=== PATIENT | female | born 1940 | race Caucasian/White ===

== ENCOUNTER 2020-10-17 15:38 | Emergency (ER) | payer MEDICARE, OTHER, SELFPAY ==
[2020-10-17 15:41] VITALS: BP 186/81; PULSE 68; RESP 18; TEMP 36.7; O2SAT 96; BMI 24.7
--- NOTE | 2020-10-17 19:02 | XRR_ITS ---
PROCEDURE INFORMATION: Exam: XR Bilateral Hips Exam date and time: 10/17/2020 7:02 PM Age: 80 years old Clinical indication: Hip pain; Bilateral; Additional info: Bilateral hip pain TECHNIQUE: Imaging protocol: XR bilateral hips. Views: 2 views of hips with pelvis when performed. COMPARISON: No relevant prior studies available. FINDINGS: Bones/joints: There is under coverage of the femoral head a due to shallow acetabula bilaterally. Joint spaces are preserved. No osteophytes. Bony pelvis is intact. Sacrum and SI joints are unremarkable. There is moderate lower lumbar degenerative disease. Soft tissues: Unremarkable. XR/XR hip BI 2V wo/w pel [id number] IMPRESSION: 1. No fracture. 2. 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
--- NOTE | 2020-10-17 20:37 | ED_ITS ---
HPI - Extremity Problem General: Chief complaint: Extremity Problem,Nontraumatic Stated complaint: BILATERAL HIP PAIN, L KNEE PAIN Time Seen by Provider: 10/17/20 20:35 Source: patient and family Mode of arrival: ambulatory Limitations: altered mental status (Alzheimers patient.) History of Present Illness: HPI Narrative: History of osteoarthritis, Alzheimer's. Patient recently relocated to live with daughter. Has chronic osteoarthritic pain currently taking Mobic and tramadol for pain. Describes spastic pain to the lower back and hips patient's daughter states with movement pain is worse. Lives at home with daughter ambulates with walker. Complaint: extremity pain Onset (ago): year(s) Pain Consistency: intermittent Location: left Severity scale (1-10): 4 Quality: dull Radiation: distal (to knee) Relieving factors: rest Exacerbating factors: weight bearing and walking Associated symptoms: Reports arthralgias Review of Systems General: Reports: 10 or more systems reviewed and unremarkable except in HPI and below Musc: Reports: back pain, extremity pain and joint pain Physical Exam Const: COMMON NORMALS: no acute distress and average body habitus HENMT: COMMON NORMALS: normocephalic and atraumatic HEAD & SCALP: normocephalic and atraumatic FACE & SINUS: normal facial exam Eye: COMMON NORMALS: Equal, round and reactive pupils present and EOMs intact bilaterally PUPIL: Yes Equal, round and reactive pupils present Neck/C-Spine: COMMON NORMALS: full ROM, no lymphadenopathy, supple and no JVD Lymph: LYMPHATIC: no lymphadenopathy noted Resp: COMMON NORMALS: normal respiratory effort, No retractions, No use of accessory muscles, clear to auscultation bilaterally and percussion normal AUSCULTATION: clear to auscultation bilaterally PERCUSSION: percussion normal Cardio: COMMON NORMALS: no JVD, regular rate, regular rhythm, S1 normal heart sound present and S2 normal heart sound present RATE: regular rate RHYTHM: regular rhythm HEART SOUNDS: S1 normal heart sound present and S2 normal heart sound present GI: COMMON NORMALS: Normal to inspection, nondistended, normoactive bowel sounds present Extremity: LEFT LOWER EXTREMITY: Yes hip joint (Unremarkable tenderness to palpation) Skin: COMMON NORMALS: no rashes or lesions noted GENERAL SKIN EXAM: no rashes or lesions noted Course ED course: Patient new to the area needs social services manager to assist in establishing patient with primary care provider. Family prefers Dr. Carlson. History of osteoarthritis pain worse recently following long trip and moving in with daughter. Patient has been very active painful movement with use of walker. Patient needs to establish with neurology for management of Alzheimer's.Discussed need for PCP for managment of patient in great detail with family. Agrees to work with social services manager to get established. Vital Signs: Vital signs: Vital Signs Temperature 98.1 F 10/17/20 15:41 Pulse Rate 60 10/17/20 21:38 Respiratory Rate 17 10/17/20 21:38 Blood Pressure 150/60 10/17/20 21:38 Pulse Oximetry 94 10/17/20 21:38 MDM - Extremity (Nontraumatic) Imaging Data^: Xray Ortho: Attestation: I personally reviewed and interpreted this imaging study as follows: Radiologist's impression: Ordering Provider/Ordering MD: Nelson Bowling DO Date of Service: 10/17/20 Procedure(s): XR hip BI 2V wo/w pel [id number] Accession Number(s): [id number] Report Number: [id number] PROCEDURE INFORMATION: Exam: XR Bilateral Hips Exam date and time: 10/17/2020 7:02 PM Age: 80 years old Clinical indication: Hip pain; Bilateral; Additional info: Bilateral hip pain TECHNIQUE: Imaging protocol: XR bilateral hips. Views: 2 views of hips with pelvis when performed. COMPARISON: No relevant prior studies available. FINDINGS: Bones/joints: There is under coverage of the femoral head a due to shallow acetabula bilaterally. Joint spaces are preserved. No osteophytes. Bony pelvis is intact. Sacrum and SI joints are unremarkable. There is moderate lower lumbar degenerative disease. Soft tissues: Unremarkable. XR/XR hip BI 2V wo/w pel [id number] IMPRESSION: 1. No fracture. 2. 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 Condition: Stable Prescriptions: New Voltaren 1 % gel 2 g topical QID Qty: 100 RF: 0 tizanidine 2 mg tablet 2 mg PO BID PRN (Reason: muscle spasticity) Qty: 14 RF: 0 No Action metformin 500 mg Tablet 500 mg PO DAILY RF: 0 Zyrtec 10 mg Tablet 10 mg PO DAILY RF: 0 metoprolol succinate 50 mg Tablet Extended Release 24 Hr 50 mg PO DAILY RF: 0 meloxicam 15 mg Tablet 15 mg PO DAILY RF: 0 Synthroid 50 mcg Tablet 50 mcg PO DAILY RF: 0 aspirin 81 mg Tablet 81 mg PO DAILY RF: 0 hydrochlorothiazide 25 mg Tablet 25 mg PO DAILY RF: 0 lovastatin 20 mg Tablet 20 mg PO QPM RF: 0 lisinopril 2.5 mg Tablet 2.5 mg PO DAILY RF: 0 docusate sodium 100 mg Tablet 100 mg PO DAILY RF: 0 Vitamin D3 50 mcg (2,000 unit) Tablet 50 mcg PO DAILY RF: 0 tramadol 50 mg Tablet 50 mg PO DAILY PRN (Reason: Pain) RF: 0 Discharge Orders: Discharge ED (Routine); Ordered 10/17/20 Ordered By: Roxann Castañeda Referrals: Jacki Carlson MD [Referring] - 4-7 days (Establish PCP) Discharge Diet: Usual diet Discharge Activity: Limit activity as instructed Patient Instructions: Osteoarthritis, Degenerative Disc Disease (ED), Opioid Safety Activity Restrictions/Additional Instructions: Use muscle relaxer sparingly for severe pain. Coding Level of Care Code ED Converting Technician for Yaneth Fwkaren Exam Comprehensive
[2020-10-17 20:56] VITALS: BP 204/72; PULSE 67; RESP 17; O2SAT 99
[2020-10-17 21:38] VITALS: BP 150/60; PULSE 60; RESP 17; O2SAT 94
== END 2020-10-17 22:01 | disposition home or self-care (01) ==
PROVIDERS: Emergency Provider Nurse Practitioner Family
DX: M16.2 Bilateral osteoarthritis resulting from hip dysplasia (principal); Z79.84 Long term (current) use of oral hypoglycemic drugs; Z79.82 Long term (current) use of aspirin
CPT/HCPCS: 73521; 99282

== ENCOUNTER 2020-11-27 11:12 | Outpatient (CLI) | payer MEDICARE, OTHER, SELFPAY ==
--- NOTE | 2020-11-27 | XR_ITS ---
WS: [id number] LEFT KNEE: 3 VIEW(S) TECHNIQUE: AP, oblique(s) and lateral. HISTORY: LEFT KNEE PAIN COMPARISON: None available. Very minimal narrowing of the joint spaces of the knee. Mild osteopenia. No joint effusion. No soft tissue abnormality. XR/XR knee LT 3V* [id number] IMPRESSION: Minimal osteopenia and tricompartment joint space narrowing.
== END 2020-11-27 11:13 | disposition home or self-care (01) ==
PROVIDERS: PCP Family Medicine; Visit Provider Family Medicine
DX: M25.562 Pain in left knee (principal)
CPT/HCPCS: 73562

== ENCOUNTER → 2021-01-28 09:14 | Outpatient (BNVA) | payer MEDICARE, OTHER, SELFPAY | PROVIDERS: PCP Family Medicine; Visit Provider Specialist | DX: M25.562 Pain in left knee (principal); S93.05XA Dislocation of left ankle joint, initial encounter; X58.XXXA Exposure to other specified factors, initial encounter | CPT/HCPCS: 73560; 73565; 73610 ==

== ENCOUNTER 2021-01-28 10:11 | Outpatient (CLI) | payer MEDICARE, OTHER, SELFPAY ==
--- NOTE | 2021-01-28 10:22 | XR_ITS ---
WS: [id number] ANKLE LEFT TECHNIQUE: 3 views of the left ankle CLINICAL INFORMATION: ANKLE JOINT PAIN, LEFT COMPARISON: None. FINDINGS: Normal ankle mortise. Talar dome is normal. Mild soft tissue edema. Chronic appearing well-corticated avulsion of the tip of the medial malleolus. Plantar calcaneal spurring. XR/XR ankle LT min 3V* [id number] IMPRESSION: 1. Mild soft tissue edema. 2. Chronic appearing well-corticated avulsion of the tip of the medial malleol us. 3. No acute fractures.
== END 2021-01-28 10:12 | disposition home or self-care (01) ==
PROVIDERS: PCP Family Medicine; Visit Provider Family Medicine
DX: S93.05XA Dislocation of left ankle joint, initial encounter (principal); X58.XXXA Exposure to other specified factors, initial encounter
CPT/HCPCS: 73610

== ENCOUNTER 2021-02-04 08:27 | Outpatient (CLI) | payer MEDICARE, OTHER, SELFPAY ==
[2021-02-04 08:50] VITALS: BMI 16.0
--- NOTE | 2021-02-04 10:15 | PC.NURSE ---
THE PATIENT WAS UNABLE TO DO THE NUCLEAR IMAGING D/T SEVERE RIGHT HIP PAIN. THE DAUGHTER STATES THAT HER MOM TAKES ULTRAM FOR THE PAIN BUT SHE DID NOT WANT TO GIVE HER ONE BEFORE THE TEST B/C IT CAN MAKE HER DISORIENTATED. DR ALFREDO NOTIFIED AND ORDERS WERE RECEIVED TO CHANGE THE TEST TO A DOBUTAMINE STRESS ECHO ON A LATER DATE. THE PATIENT AND HER DAUGHTER WERE BROUGHT BACK TO [facility] AND EXPLAINED DR ALFREDO'S ORDERS. THEY VERBALIZED THEIR UNDERSTANDING. THE IV WAS DISCONTINUED. THIS NURSE WAS UNABLE TO GET AHOLD OF SCHEDULING AFTER MULTIPLE ATTEMPTS. A MESSAGE WAS LEFT WITH JOSELYN, DR ALFREDO'S NURSE, TO HELP WITH THE RESCHEDULE. THE PATIENT AND HER DAUGHTER WERE SENT HOME WITH TYPED INSTRUCTIONS FOR A DOBUTAMINE STRESS ECHOCARDIOGRAM. THEY WERE ALSO TOLD THAT SOMEONE FROM [facility] WOULD BE CONTACTING THEM SOON WITH A RESCHEDULE DATE. THEY BOTH VERBALIZED THEIR UNDERSTANDING AND WERE THEN ESCORTED TO THE PARKING LOT.
--- NOTE | 2021-02-04 12:00 | USCV_ITS ---
Celia Aguayo Age: 81 Gender: F : 1940 Exam Date: 02/04/2021 09:10 Ordering Phys: Patricia Hagen MD ([email or web address]) Technologist: KENNEDY Exam Location: [facility] [place] Indication: DYSPNEA, ABNORMAL EKG BP: 150 / 60 HR: 64 Rhythm: Other Technical Quality: Adequate MEASUREMENTS (Male / Female) Normal Values 2D ECHO LV Diastolic Diameter PLAX 3.8 cm 4.2 - 5.9 / 3.9 - 5.3 cm LV Systolic Diameter PLAX 2.8 cm IVS Diastolic Thickness 1.4 cm 0.6 - 1.0 / 0.6 - 0.9 cm IVS Systolic Thickness 2.0 cm LVPW Diastolic Thickness 1.7 cm 0.6 - 1.0 / 0.6 - 0.9 cm LVPW Systolic Thickness 2.0 cm LVOT Diameter 2.0 cm LV Ejection Fraction 2D Teich 50.3 % LV Ejection Fraction MOD 2C 61.9 % LV Ejection Fraction 2C AL 60.9 % LA Diameter 3.1 cm LA Width 3.2 cm LA Height 3.3 cm RA Width 3.6 cm RA Height 3.6 cm Aorta at Sinotubular Diameter 1.9 cm M-MODE Aortic Annulus Diameter 2.4 cm LA Ao Ratio MM 1.3 MV E Point Septal Separation 0.7 cm DOPPLER LVOT Peak Velocity 95.0 cm/s MV Peak Velocity 181.0 cm/s MV Area PHT 3.5 cm squared Mitral E to A Ratio 0.8 MV E' Velocity 59.5 cm/s Mitral E to MV E' Ratio 14.7 Mitral E to LV E' Lateral Ratio 13.3 Mitral E to LV E' Septal Ratio 16.4 TR Peak Velocity 369.0 cm/s TR Peak Gradient 54.5 mmHg TR Mean Velocity 283.8 cm/s TR Mean Gradient 34.1 mmHg TR Velocity Time Integral 127.7 cm TV Peak E Velocity 56.0 cm/s Right Atrial Pressure 5.0 mmHg Pulmonary Artery Systolic Pressu 59.5 mmHg PV Peak Velocity 68.0 cm/s RV Acceleration Time 0.1 s RV Ejection Time 0.3 s RV AcT/ET 0.2 FINDINGS Left Ventricle Normal left ventricular size and systolic function, EF 62 %. No regional wall motion abnormalities. Moderate left ventricular hypertrophy. Grade I/IV diastolic dysfunction (abnormal relaxation filling pattern), normal to mildly elevated filling pressures. Right Ventricle The right ventricle is normal in size and function. Right Atrium The right atrium is normal in size. Left Atrium Mildly increased left atrial size. Mitral Valve Moderate mitral annular calcification. Thickened mitral valve. Moderate mitral valve regurgitation. Aortic Valve Thickened aortic valve. Trace to mild aortic valve regurgitation. Tricuspid Valve Moderate tricuspid valve regurgitation. Moderate pulmonary hypertension with estimated pulmonary artery peak systolic pressure of 59 mmHg Pulmonic Valve No gross abnormalities noted Pericardium No pericardial effusion. Aorta Normal aortic annulus size. CONCLUSIONS Normal left ventricular size and systolic function, EF 62 %. No regional wall motion abnormalities. Moderate left ventricular hypertrophy. Grade I/IV diastolic dysfunction (abnormal relaxation filling pattern), normal to mildly elevated filling pressures. Moderate mitral annular calcification. Thickened mitral valve. Moderate mitral valve regurgitation. Mildly increased left atrial size. Thickened aortic valve. Trace to mild aortic valve regurgitation. Moderate tricuspid valve regurgitation. Moderate pulmonary hypertension with an estimated pulmonary artery peak systolic pressure of 59 mmHg. No previous study is available for comparison. Dr Patricia Hagen MD FACC (Electronically Signed) Final Date: 05 February 2021 21:52 S
== END 2021-02-04 08:28 | disposition home or self-care (01) ==
PROVIDERS: PCP Family Medicine; Visit Provider Internal Medicine Cardiovascular Disease
DX: R06.00 Dyspnea, unspecified (principal); R07.9 Chest pain, unspecified; R94.31 Abnormal electrocardiogram [ECG] [EKG]; I08.3 Combined rheumatic disorders of mitral, aortic and tricuspid valves; I27.20 Pulmonary hypertension, unspecified
CPT/HCPCS: 93306

== ENCOUNTER 2021-02-06 12:05 | Outpatient (CLI) | payer MEDICARE, OTHER, SELFPAY ==
--- NOTE | 2021-02-06 12:11 | MR_ITS ---
WS: [id number] MRI HEAD WITHOUT CONTRAST TECHNIQUE: Sagittal T1, T2 axial, T2 axial FLAIR, axial and coronal T1 images, axial susceptibility w eighted imaging, axial diffusion weighted images, and coronal T2 images were obtained. CLINICAL INFORMATION: SHORT TERM MEMORY LOSS;MILD COGNITIVE IMPAIRMENTS COMPARISON: None. FINDINGS: No evidence of restricted diffusion to suggest acute ischemia. Ventricular system and basal cisterns are patent. Moderate to advanced small vessel changes with moderate parenchymal volume loss. Chronic lacunar infarct right caudate. Chronic infarcts about the left occipital horn with encephalomalacia a nd gliosis. Normal posterior fossa. Normal vascular flow voids at the skull base. No extra-axial flui d collections. Paranasal sinuses and mastoid air cells are well aerated. Disc osteophytic ridging C3-C4 with slight indentation on the cervical cord. No hemosiderin on suscep tibly weighted images. Normal optic chiasm and pituitary infundibulum. Normal cavernous sinuses and M brii's cave. Moderate symmetric atrophy temporal lobes and hippocampal formations. MR/MR head wo con* [id number] IMPRESSION: 1. No evidence of restricted diffusion to suggest acute ischemia. 2. Moderate to advanced small vessel changes with moderate parenchymal volume loss. 3. Moderate symmetric atrophy temporal lobes and hippocampal formations. 4. Chronic lacunar infarct right caudate. 5. Chronic infarct left posterior temporal lobe with encephalomalacia and glio sis. 6. No hemosiderin on susceptibly weighted images.
== END 2021-02-06 12:06 | disposition home or self-care (01) ==
PROVIDERS: PCP Family Medicine; Visit Provider Family Medicine
DX: G31.84 Mild cognitive impairment of uncertain or unknown etiology (principal); I63.9 Cerebral infarction, unspecified; G93.89 Other specified disorders of brain
CPT/HCPCS: 70551

== ENCOUNTER 2021-02-09 16:25 | Outpatient (CLI) | payer MEDICARE, OTHER, SELFPAY ==
--- NOTE | 2021-02-09 16:45 | MR_ITS ---
WS: [id number] MRI LEFT KNEE HISTORY: M25.569 - Pain in unspecified knee COMPARISON: None available. Anterior cruciate ligament: Moderate thinning and increased T2 signal throughout the ACL. No full-thi ckness tear. Moderate thinning is most significant involving the distal third of the ligament. Posterior cruciate ligament: Intact. Medial collateral ligament: Intact. Posterior lateral corner structures: Intact. Medial menisci: Intact. Normal signal, size and shape. Lateral meniscus: Intact. Normal signal, size and shape. Extensor mechanism: Distal quadriceps tendon and patellar tendons are intact. Fluid and soft tissue: No joint effusion. No Hernandez's cyst. Osseous and articular structures: Patellofemoral compartment: Very mild surface irregularity involving the cartilage of the patella. No dislocation of the patella or subchondral cystic disease. Medial compartment: Mild narrowing of the medial compartment. Thinning and fissuring and loss of cart ilage is mild to moderate throughout the compartment. No marrow edema. Only minimal osteophyte format ion from the joint line. Lateral compartment: Mild narrowing of the lateral compartment diffuse thinning and fissuring of the cartilage. Only small marginal osteophytes. MR/MR knee LT con* [id number] IMPRESSION: 1. Mild narrowing of the medial and lateral compartments with mild diffuse thi nning of the cartilage and fissuring. No underlying marrow edema or subchondral cystic changes within the bone. 2. Mild ACL intrasubstance degeneration. Greatest thinning of the ligament is in the distal third but no full-thickness tear.
== END 2021-02-09 16:26 | disposition home or self-care (01) ==
LOC: RADSHAW 16:31
PROVIDERS: PCP Family Medicine; Visit Provider Specialist
DX: M25.562 Pain in left knee (principal)
CPT/HCPCS: 73721

== ENCOUNTER 2021-03-06 12:31 | Outpatient (CLI) | payer MEDICARE, OTHER, SELFPAY ==
[2021-03-06 13:13] VITALS: BMI 22.1
--- NOTE | 2021-03-06 14:12 | PC.NURSE ---
pt bp 208/80, when dr villalpando called with result verbal order for med. recheck bp in 30 mins
[2021-03-06] MEDS: amlodipine 10 mg Tablet PO (14:14)
--- NOTE | 2021-03-06 15:21 | PC.NURSE ---
pt bp still elevated. called dr villalpando with new orders. we did not do this test due to the bp elevation. nurse received new order for meds and will be called to [facility] per pt family request. pt did not know where she filled her prescriptions. amlodipine 10 mg po daily metoprolol 25 mg po daily record am and pm bp. if bp drops below 130 systolic pt is to call the multifold operator here at the hospital and get ahold of dr villalpando. if bp does not drop, pt is to call dr villalpando on tuesday with daily recording. family acknowledged understanding.
--- NOTE | 2021-03-06 15:29 | PC.NURSE ---
prescriptions called to [facility] at [facility]
== END 2021-03-06 12:32 | disposition home or self-care (01) ==
LOC: CDL 12:31
PROVIDERS: PCP Family Medicine; Visit Provider Internal Medicine Cardiovascular Disease
DX: R07.9 Chest pain, unspecified (principal)

== ENCOUNTER 2021-04-15 12:31 | Outpatient (CLI) | payer MEDICARE, OTHER, SELFPAY ==
--- NOTE | 2021-04-15 | USCV_ITS ---
Dobutamine Stress Echo Celia Aguayo Age: 81 Gender: F : 1940 Exam Date: 04/15/2021 15:01 Ordering Phys: Patricia Hagen MD ([email or web address]) Technologist: KENNEDY [place] [facility] [place]: CP/SOB Rhythm: Sinus Patient History: Cardiac Medications: Beta aris, CCB Medications in past 24 hours: Contrast: Total Dose (mL): Stress Results Protocol: Pharmacologic Peak Dose (???g/kg/min): Duration (min:sec): 7:59 Atropine:(mg) Target HR: 117 Double Product: [id number] Resting HR: 73 Resting BP: 205 / 80 Peak HR: 133 Peak BP: 206 / 80 Max Predicted HR: 138 96 % Max Predicted HR Stress Summary: The hemodynamic response to stress was normal. The patient's target heart rate was achieved. BP Response: Normal Reason for Termination: The patients target heart rate was achieved Cardiac Symptoms: None ECG Analysis Resting EKG: Please see separate report Stress EKG: Please see separate report Arrhythmia: Please see separate report MEASUREMENTS (Male/Female) Normal Values FINDINGS Baseline echo cardiogram revealed normal LV size and ejection fraction of around 55%. Mild concentric left ventricular hypertrophy. Thickened mitral valve with a moderate mitral annular calcification. The aortic valve is mildly thickened. Mildly dilated left atrium. With a low and peak dobutamine infusion, there was good augmentation of all the segments with no dobutamine induced wall motion abnormalities During the recovery phase, there was no new changes. The wall motion returned back to the baseline CONCLUSIONS 1. Normal echocardiographic response to dobutamine fusion. 2. Low probability for coronary ischemia, based on the above finding Dr Patricia Hagen MD FACC (Electronically Signed) Final Date: 15 April 2021 19:00 S
--- NOTE | 2021-04-15 12:57 | ECG_ITS ---
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 Interpretive Statements NAME OF STUDY: DOBUTAMINE STRESS ECHOCARDIOGRAM INDICATION: [cp/ sob, ] PROCEDURE: At the baseline, the blood pressure was 195/80 with a heart rate of 68. The electrocardiogram showed normal sinus rhythm with nonspecific ST changes in the inferolateral leads. Poor R wave progression. The dobutamine was infused over a period of 7 minutes and 59 seconds. The maximum heart rate obtained was 133 (96% of the maximum predicted heart rate). The blood pressure at that time was 206/71 mmHg. The patient did not have any chest pain. The EKG revealed a [address] depressions in lead II, 3, aVF, V4 to V6. the physical examination remained unchanged. Frequent PVCs are noted on the monitor, towards the peak heart rate During the recovery phase, the patient did not have any specific symptoms. The blood pressure at the end of the recovery phase was 183/71 with a heart rate of 92 per minute. Echocardiographic pictures were taken at the baseline, low, peak and recovery phase of the dobutamine infusion. CONCLUSION: 1. Abnormal EKG response to beta infusion, suggesting inferolateral wall ischemia 2. Dobutamine induced shortness of breath with no chest pain 3. Dobutamine induced ventricular arrhythmia with a peak heart rate 4. Echocardiographic features are taken at the baseline, low dose infusion, peak infusion and during the recovery phase. Please see separate report Electronically Signed On 04-17-2021 11:03:41 VICE PRESIDENT EDUCATION by Patricia Hagen M.D. [id number]
[2021-04-15 13:05] VITALS: BMI 22.8
--- NOTE | 2021-04-15 13:36 | PC.NURSE ---
pt bp 200/70. verbal order given for amlodipine 10mg po. check bp in hr.
[2021-04-15] MEDS: amlodipine 10 mg Tablet PO (13:42)
--- NOTE | 2021-04-15 14:32 | PC.NURSE ---
repeat bp at 185/70. dr villalpando states to try this and not allow bp to get above 210 systolic. if it does, then cancel test.
[2021-04-15] MEDS: DOBUTtamine 200 MG in sodium chloride 0.9% 34 ML 9 MG IV (15:05)
[2021-04-15 15:27] VITALS: BP 183/71; PULSE 92
== END 2021-04-15 12:32 | disposition home or self-care (01) ==
LOC: CDL 12:35
PROVIDERS: PCP Family Medicine; Visit Provider Internal Medicine Cardiovascular Disease
DX: R07.9 Chest pain, unspecified (principal); R06.09 Other forms of dyspnea; R06.02 Shortness of breath; R94.31 Abnormal electrocardiogram [ECG] [EKG]
CPT/HCPCS: 93017; 93350; J1250; J7050

== ENCOUNTER → 2021-06-30 13:45 | Outpatient (BNVA) | payer MEDICARE, OTHER, SELFPAY | PROVIDERS: PCP Family Medicine; Visit Provider Internal Medicine Cardiovascular Disease | DX: R06.02 Shortness of breath (principal); E78.5 Hyperlipidemia, unspecified; I10 Essential (primary) hypertension; Z87.891 Personal history of nicotine dependence | CPT/HCPCS: 99214 ==

== ENCOUNTER → 2021-10-05 13:46 | Outpatient (BNVA) | payer MEDICARE, OTHER, SELFPAY | PROVIDERS: PCP Family Medicine; Visit Provider Internal Medicine Cardiovascular Disease | DX: I10 Essential (primary) hypertension (principal); E78.5 Hyperlipidemia, unspecified; E11.9 Type 2 diabetes mellitus without complications; Z86.73 Personal history of transient ischemic attack (TIA), and cerebral infarction without residual deficits; Z87.891 Personal history of nicotine dependence | CPT/HCPCS: 99213; 99214 ==